=== PATIENT | male | born 1960 | race Caucasian/White ===

== ENCOUNTER 2019-10-28 13:53 | Outpatient (CLI) | payer OTHER, SELFPAY ==
[2019-10-28 14:06] LABS: Hematocrit 59.4 % (40.0-54.0); Mean Corpuscular Hemoglobin 29.8 pg (27.0-31.0); Mean Corpuscular Volume 93.1 fL (78.0-102.0); Mean Platelet Volume 9.3 fl (8.7-11.0); Platelet Count Result 207 K/mm3 (150-420); Red Blood Count 6.38 M/mm3 (4.70-6.10); Red Cell Distribution Width 12.7 % (11.6-14.4); White Blood Count 8.6 K/mm3 (4.8-10.8)
[2019-10-28 14:55] LABS: Alanine Aminotransferase 41 U/L (16-63); Albumin Level 3.8 g/dL (3.4-5.0); Alkaline Phosphatase 102 U/L (46-116); Anion Gap 4 mmol/L (8-16); Aspartate Amino Transferase 24 U/L (15-37); Bilirubin,Total 1.1 mg/dL (0.00-1.00); Blood Urea Nitrogen 9 mg/dL (7-18); Calcium 8.9 mg/dL (8.5-10.1); Carbon Dioxide 34 mmol/L (21-32); Chloride 102 mmol/L (98-108); Cholesterol 202 mg/dL (0-200); Estimated Glomerular Filt Rate > 60; Glucose 101 mg/dL (70-99); HDL Direct 39 mg/dL (40-60); LDL Cholesterol Calculated 137 mg/dL (<130); Osmolality Calculated 288 mOsm/kg (285-295); Prostate Specific Antigen 1.5 ng/mL (< OR = 4.0); Sodium 140 mmol/L (136-145); Total Protein 6.9 g/dL (6.4-8.2); Triglycerides 130 mg/dL (0-150)
== END 2019-10-28 13:54 | disposition home or self-care (01) ==
LOC: CHSLAB 13:58
PROVIDERS: PCP Family Medicine; Visit Provider Nurse Practitioner Family
DX: E78.5 Hyperlipidemia, unspecified (principal); I10 Essential (primary) hypertension; N40.1 Benign prostatic hyperplasia with lower urinary tract symptoms; R39.15 Urgency of urination
CPT/HCPCS: 36415; 80053; 80061; 84153; 85027

== ENCOUNTER 2020-10-09 09:05 | Outpatient (CLI) | payer OTHER, SELFPAY ==
--- NOTE | ~2020-10-09 | US_ITS ---
EXAMINATION: US abdomen limited DATE: 10/09/2020 09:51 INDICATION: Unspecified abdominal pain TECHNIQUE: Multiple grayscale and Doppler ultrasound images of the abdomen were obtained. COMPARISON: None available FINDINGS: Bowel gas obscures visualization of the pancreas. The visualized portions of the pancreas a re unremarkable. There are questionable small echogenic, nonshadowing foci of the liver. There is nod ularity of the liver surface. Normal hepatopetal flow in the main portal vein. Stones are present in the nondistended gallbladder. There is no gallbladder wall thickening or pericholecystic fluid The no rmal common bile duct measures 3 mm. There was no sonographic Branham sign. IMPRESSION: 1. Liver surface nodularity suggestive of cirrhosis. 2. Possible small liver masses. Further evaluation by CT or MRI is recommended. Reviewed, dictated and finalized at location A.
== END 2020-10-09 09:06 | disposition home or self-care (01) ==
LOC: CHSIMG 09:06
PROVIDERS: PCP Family Medicine; Visit Provider Family Medicine
DX: R10.9 Unspecified abdominal pain (principal)
CPT/HCPCS: 76705

== ENCOUNTER 2020-11-21 07:22 | Outpatient (CLI) | payer OTHER, SELFPAY ==
--- NOTE | ~2020-11-21 | MR_ITS ---
EXAMINATION: MR abdomen wo/w con INDICATION: Hepatomegaly and possible liver masses on ultrasound TECHNIQUE: Multisequence, multiplanar MRI of the abdomen is performed COMPARISON: Ultrasound, 10/09/2020 CONTRAST: Multihance, 14 cc FINDINGS: No MRI correlate is identified for the liver lesions question on the comparison ultrasound. The spleen, pancreas, and adrenal glands are normal. Stones are present in the nondistended gallblad tracie. The kidneys are unremarkable. There are no dilated loops of bowel. No pathologically enlarged ab dominal lymph nodes are identified. IMPRESSION: 1. No suspicious correlate identified for the small liver masses questioned on the comparison ultraso und. Reviewed, dictated and finalized at location A. IMPRESSION: 1. No suspicious correlate identified for the small liver masses questioned on the comparison ultrasound.
== END 2020-11-21 07:23 | disposition home or self-care (01) ==
LOC: CHSIMG 07:25
PROVIDERS: PCP Family Medicine; Visit Provider Family Medicine
DX: R16.0 Hepatomegaly, not elsewhere classified (principal)
CPT/HCPCS: 74183

== ENCOUNTER 2020-12-06 11:26 | Outpatient (CLI) | payer OTHER, SELFPAY ==
[2020-12-06 12:11] LABS: Hematocrit 56.4 % (40.0-54.0); Hemoglobin 18.3 g/dL (14.0-18.0); Mean Corpuscular HGB Conc 32.4 g/dL (32.0-36.0); Mean Corpuscular Hemoglobin 29.2 pg (27.0-31.0); Mean Platelet Volume 9.7 fl (8.7-11.0); Platelet Count Result 176 K/mm3 (150-420); Red Blood Count 6.27 M/mm3 (4.70-6.10); Red Cell Distribution Width 12.6 % (11.6-14.4)
[2020-12-06 12:26] LABS: Partial Thromboplastin Time 27.3 SEC (23.90-30.70)
[2020-12-06 12:39] LABS: Prothrombin Time 10.9 Seconds (9.64-11.0)
[2020-12-06 13:11] LABS: Alanine Aminotransferase 30 U/L (16-63); Albumin Level 3.8 g/dL (3.4-5.0); Alkaline Phosphatase 101 U/L (46-116); Anion Gap 5 mmol/L (8-16); Aspartate Amino Transferase 19 U/L (15-37); Bilirubin,Total 0.5 mg/dL (0.00-1.00); Blood Urea Nitrogen 6 mg/dL (7-18); Calcium 8.5 mg/dL (8.5-10.1); Carbon Dioxide 35 mmol/L (21-32); Chloride 98 mmol/L (98-108); Cholesterol 112 mg/dL (0-200); Estimated Glomerular Filt Rate > 60; Ferritin 90 ng/mL (26-388); Glucose 111 mg/dL (70-99); HDL Direct 35 mg/dL (40-60); Iron 65 ug/dL (65-175); LDL Cholesterol Calculated 51 mg/dL (<130); Osmolality Calculated 284 mOsm/kg (285-295); Percent Iron Saturation 20 % (12-57); Potassium 4.3 mmol/L (3.5-5.1); Prostate Specific Antigen 1.2 ng/mL (< OR = 4.0); Sodium 138 mmol/L (136-145); Total Protein 6.5 g/dL (6.4-8.2); Triglycerides 128 mg/dL (0-150)
[2020-12-09 07:00] LABS: SARS-CoV-2 IgG <1.00 Index (<1.00)
[2020-12-09 11:34] LABS: Mitochondrial (M2) Ab (IgG) <=20.0 U (<=20.0)
[2020-12-10 14:21] LABS: Alpha-1-Antitrypsin, QN 182 mg/dL (83-199); Ceruloplasmin 30 mg/dL (18-36)
[2020-12-10 20:18] LABS: Actin Antibody (IgG) <20 U (<20)
[2020-12-11 03:49] LABS: Hepatitis A Antibody IgM Nonreactive; Hepatitis B Core Antibody Nonreactive (Nonreactive); Hepatitis B Surface Antigen Nonreactive (Nonreactive); Hepatitis C Signal to Cutoff 0.02 ratio (<1.00); Hepatitis C Virus Antibody Nonreactive (Nonreactive)
[2020-12-13 13:28] LABS: ANA Cascade Screen Negative (Negative)
== END 2020-12-06 11:27 | disposition home or self-care (01) ==
LOC: CHSLAB 11:34
PROVIDERS: PCP Family Medicine; Visit Provider Surgery
DX: K74.60 Unspecified cirrhosis of liver (principal); R35.1 Nocturia; Z20.822 Contact with and (suspected) exposure to COVID-19
CPT/HCPCS: 36415; 80053; 80061; 80074; 82103; 82390; 82728; 83516; 83520; 83540; 83550; 84153; 85027; 85610; 85730; 86038; 86769; G0103

== ENCOUNTER 2022-12-17 14:34 | Emergency (ER) | payer OTHER, SELFPAY ==
[2022-12-17] VITALS (39 sets, daily range): BP systolic 102–144; BP diastolic 61–97; PULSE 91–114; RESP 15–28; TEMP 36.4–37.1; O2SAT 82–97
--- NOTE | ~2022-12-17 | XR_ITS ---
EXAMINATION: XR chest 1V portable INDICATION: Shortness of breath TECHNIQUE: Portable AP chest at 1501 hours COMPARISON: None available FINDINGS: There is mild atelectasis of the left midlung zone and lung bases. No pleural effusion or p neumothorax. The lungs are free of acute opacities. The cardiomediastinal silhouette is normal. IMPRESSION: 1. No acute cardiopulmonary abnormality. Reviewed, dictated and finalized at location F.
--- NOTE | 2022-12-17 14:43 | ED.SOB ---
HPI - SOB/Dyspnea General Chief Complaint: Shortness of Breath/Dyspnea Stated Complaint: short of breath; sore throat; leg swelling Time Seen by Provider: 12/17/22 14:42 Source: patient Mode of arrival: ambulatory Limitations: no limitations History of Present Illness HPI Narrative: 62-year-old male, smoker with a history of headaches, chronic low back pain, dyslipidemia, cirrhosis of liver, gallstones, CAD,COPD presents to the ER with a 4 day history of -- sore throat -- chills -- worsening shortness of breath for the past 1 month. On presentation to the ER the patient was noted to have an oxygen saturation of 85% on room air. Subsequently he was placed on 1 L FiO2 on transfer to the ER. -- Increasing leg swelling MD elicited complaint: shortness of breath and cough Pertinent past history: COPD Onset (ago): day(s) ( symptoms started 4 days ago.) Context: recent illness Timing: constant Severity: moderate Exacerbating factors: exertion Relieving factors: rest Known history of: COPD Associated symptoms: cough and chest congestion Treatment prior to arrival: none Related Data Home oxygen amount: none Allergies Allergy/AdvReac Type Severity Reaction Status Date / Time No Known Allergies Allergy Verified 12/17/22 14:54 Review of Systems Review of Systems: All systems reviewed & are unremarkable except as noted in HPI and below Constitutional: Constitutional: Reports as per HPI and Reports no additional constitutional complaints Eyes: Eyes: Reports as per HPI and Reports no additional eye complaints ENT: Reports system reviewed and no additional complaints, except as documented and Reports as per HPI Cardiovascular: Cardiovascular: Reports as per HPI and Reports no additional cardiovascular complaints Respiratory: Respiratory: Reports as per HPI, Reports no additional respiratory complaints, Reports chest congestion, Reports cough and Reports dyspnea Gastrointestinal: Gastrointestinal: Reports as per HPI and Reports no additional gastrointestinal complaints Genitourinary: Genitourinary: Reports no additional male genitourinary complaints and Reports as per HPI Musculoskeletal: Musculoskeletal: Reports no additional musculoskeletal complaints, Reports as per HPI and Reports back pain Integumentary/Breasts: Skin/Breast: Reports system reviewed and no additional complaints, except as docu and Reports as per HPI Neurologic: Reports system reviewed and no additional complaints, except as documented and Reports as per HPI Psychiatric: Psychiatric: Reports no additional psychiatric complaints and Reports as per HPI Endocrine: Endocrine: Reports no additional endocrine complaints and Reports as per HPI Hematologic/Lymphatic: Hematologic/Lymphatic: Reports no additional hematologic/lymphatic complaints and Reports as per HPI Allergic/Immunologic: Allergic/Immunologic: Reports no additional allergic/immunologic complaints and Reports as per HPI PMFSH Past Medical History Medical History CAD (coronary artery disease) Chronic back pain Cluster headache COPD (chronic obstructive pulmonary disease) Hyperlipidemia Nicotine dependence Surgical History Surgical History No history of previous surgery Family History Family History Other Depression Family history of coronary artery disease Family history of migraine headaches Family history of osteoporosis Hypertension Social History Social History Smoking packs per day: 1 Smoking cigarettes per day: 20.0 Years smoked: 30 Smoking pack-years: 30.00 Smoking status: Current every day smoker Tobacco type: cigarettes Alcohol intake: former Alcohol use details: QUIT ABOUT 2014 Substance use: never Substance use type: does not use L
--- NOTE | 2022-12-17 14:47 | ECG_ITS ---
Measurements Intervals [place] Rate: 111 P: 83 AL: 151 QRS: 114 QRSD: 83 T: 65 QT: 326 QTc: 444 Interpretive Statements SINUS TACHYCARDIA RIGHT ATRIAL ENLARGEMENT [0.3mV P-WAVE] LEFT ATRIAL ENLARGEMENT [-0.15mV P-WAVE IN V1/V2] INDETERMINATE AXIS POSSIBLE RIGHT VENTRICULAR CONDUCTION DELAY [RSR (QR) IN V1/V2] ABNORMAL ECG NO PREVIOUS ECG AVAILABLE FOR COMPARISON Electronically Signed On 12-17-2022 15:49:42 CDT by [place] Feng M.D.
[2022-12-17 15:09] LABS: Base Excess ABG 1.9 mmol/L (0-2); HCO3 ABG 27.1 mmol/L (23-29); Oxygen Content ABG 20.8 %vol (16.0-22.0); Oxygen Saturation ABG 89.2 % (95-97); Oxyhemoglobin 83.4 % (94-100); PCO2 ABG 44.1 mmHg (35-45); Total Hemoglobin 17.8 g/dL (12.0-18.0); pH ABG 7.41 (7.35-7.45)
[2022-12-17 15:11] LABS: Device ROOM AIR; Modified Allen's Test Pass; Site Drawn RIGHT RADIAL
[2022-12-17 15:13] LABS: Hemoglobin 16.7 g/dL (14.0-18.0); Mean Corpuscular HGB Conc 32.7 g/dL (32.0-36.0); Mean Corpuscular Hemoglobin 29.9 pg (27.0-31.0); Mean Corpuscular Volume 91.4 fL (78.0-102.0); Mean Platelet Volume 10.1 fl (8.7-11.0); Platelet Count Result 184 K/mm3 (150-420); Red Blood Count 5.58 M/mm3 (4.70-6.10); Red Cell Distribution Width 13.3 % (11.6-14.4); White Blood Count 7.3 K/mm3 (4.8-10.8)
[2022-12-17 15:25] LABS: Lipase 29 U/L (16-77)
[2022-12-17 15:33] LABS: INR 1.1; Partial Thromboplastin Time 27.3 SEC (23.90-30.70); Prothrombin Time 11.8 Seconds (9.50-12.10)
[2022-12-17 15:35] LABS: Alanine Aminotransferase 24 U/L (16-63); Alkaline Phosphatase 230 U/L (46-116); Anion Gap 4 mmol/L (8-16); Aspartate Amino Transferase 24 U/L (15-37); Bilirubin,Total 0.7 mg/dL (0.00-1.00); Blood Urea Nitrogen 13 mg/dL (7-18); Calcium 8.8 mg/dL (8.5-10.1); Carbon Dioxide 30 mmol/L (21-32); Chloride 94 mmol/L (98-108); Creatine Kinase 69 U/L (39-308); Estimated CRCL calculation 55 ml/min; Estimated Glomerular Filt Rate > 60; Glucose 154 mg/dL (70-99); NT Pro B Type Natriuretic Pept 2842 pg/mL (0-125); Osmolality Calculated 269 mOsm/kg (285-295); Potassium 4.9 mmol/L (3.5-5.1); Sodium 128 mmol/L (136-145)
[2022-12-17 15:39] LABS: Lactic Acid Reflex 0.9 mmol/L (0.4-2.0); Thyroid Stimulating Hormone 0.95 uIU/mL (0.36-3.74); Troponin I 27.3 ng/L (0.00-60.4)
[2022-12-17 15:40] LABS: Band Neutrophils Percent 0 % (0-6); Basophils Percent Manual 0 % (0-1); Eosinophils Percent Manual 0 % (1-6); Lymphocytes Absolute Manual 1.09 K/mm3 (1.1-4.5); Lymphocytes Percent Manual 15 % (18-44); Metamyelocytes Percent 0 %; Monocytes Absolute Manual 0.36 K/mm3 (0.1-0.90); Monocytes Percent Manual 5 % (3-9); Myelocytes Percent 2 %; Neutrophils Absolute Manual 5.69 K/mm3 (1.3-6.7); Neutrophils Percent Manual 78 % (46-73); Total Cells Counted 100
[2022-12-17 15:49] LABS: Influenza A QL RT-PCR Negative (Negative); Influenza B QL RT-PCR Negative (Negative); SARS-CoV-2 RNA PCR Negative (Negative)
[2022-12-17 15:50] LABS: RSV RNA, RT-PCR Negative (Negative)
[2022-12-17 15:51] LABS: Platelet Estimate Adequate (Adequate)
[2022-12-17] MEDS: FUROSEMIDE INJ 40 MG/4 ML VIAL IV PUSH (16:50)
[2022-12-17] MEDS: methylPREDNISolone SOD SUCC 125 MG VIAL IV PUSH (21:00)
[2022-12-17] MEDS: NICOTINE (*PBKC) 21 MG PATCH 1 PATCH TRANSDERM (21:00)
[2022-12-17] MEDS: ACETAMINOPHEN 325 MG TABLET 650 MG PO (23:28)
== END 2022-12-17 23:31 | disposition short-term general hospital (02) ==
PROVIDERS: Emergency Provider Internal Medicine Critical Care Medicine; PCP Family Medicine
DX: J44.9 Chronic obstructive pulmonary disease, unspecified (principal); J96.91 Respiratory failure, unspecified with hypoxia; I50.9 Heart failure, unspecified; E87.1 Hypo-osmolality and hyponatremia; I25.10 Atherosclerotic heart disease of native coronary artery without angina pectoris; E78.5 Hyperlipidemia, unspecified; F17.210 Nicotine dependence, cigarettes, uncomplicated; Z20.822 Contact with and (suspected) exposure to COVID-19
CPT/HCPCS: 36415; 36600; 71045; 80053; 82550; 82805; 83605; 83690; 83880; 84443; 84484; 85025; 85610; 85730; 87637; 93005; 96374; 96375; 99285; A9270; J1940; J2930

== ENCOUNTER 2022-12-30 15:32 | Outpatient (CLI) | payer OTHER, SELFPAY ==
[2022-12-30 15:55] LABS: Hemoglobin A1C 5.8 % (<5.7)
[2022-12-30 16:03] LABS: Anion Gap 5 mmol/L (8-16); Blood Urea Nitrogen 13 mg/dL (7-18); Calcium 8.4 mg/dL (8.5-10.1); Carbon Dioxide 37 mmol/L (21-32); Chloride 98 mmol/L (98-108); Estimated Glomerular Filt Rate > 60; Glucose 105 mg/dL (70-99); Osmolality Calculated 290 mOsm/kg (285-295); Potassium 4.6 mmol/L (3.5-5.1); Sodium 140 mmol/L (136-145)
== END 2022-12-30 15:33 | disposition home or self-care (01) ==
LOC: CHSLAB 15:33
PROVIDERS: PCP Family Medicine; Visit Provider Family Medicine
DX: E11.9 Type 2 diabetes mellitus without complications (principal); I50.21 Acute systolic (congestive) heart failure
CPT/HCPCS: 36415; 80048; 83036

== ENCOUNTER 2023-01-27 12:55 | Outpatient (CLI) | payer OTHER, SELFPAY | END 2023-01-27 12:56 | disposition home or self-care (01) | LOC: ANHAUDIO 12:57 | PROVIDERS: PCP Family Medicine; Visit Provider Family Medicine | DX: H90.3 Sensorineural hearing loss, bilateral (principal) | CPT/HCPCS: 92557; 92567 ==

== ENCOUNTER 2023-07-08 15:41 | Outpatient (CLI) | payer OTHER, SELFPAY ==
[2023-07-08 15:56] LABS: Hematocrit 44.7 % (40.0-54.0); Hemoglobin 13.9 g/dL (14.0-18.0); Mean Corpuscular HGB Conc 31.1 g/dL (32-36); Mean Corpuscular Volume 93.3 fL (78.0-102.0); Mean Platelet Volume 8.5 fl (8.7-11.0); Platelet Count Result 242 K/mm3 (150-420); Red Blood Count 4.79 M/mm3 (4.70-6.10); Red Cell Distribution Width 12.4 % (11.6-14.4); White Blood Count 10.7 K/mm3 (4.8-10.8)
[2023-07-08 16:42] LABS: Alanine Aminotransferase 29 U/L (16-63); Albumin Level 3.1 g/dL (3.4-5.0); Alkaline Phosphatase 114 U/L (46-116); Anion Gap 4 mmol/L (4-12); Aspartate Amino Transferase 19 U/L (15-37); Bilirubin,Total 0.3 mg/dL (0.00-1.00); Blood Urea Nitrogen 17 mg/dL (7-18); Calcium 8.6 mg/dL (8.5-10.1); Carbon Dioxide 37 mmol/L (21-32); Chloride 102 mmol/L (98-108); Cholesterol 108 mg/dL (0-200); Estimated Glomerular Filt Rate > 60; Glucose 93 mg/dL (70-99); HDL Direct 48 mg/dL (40-60); LDL Cholesterol Calculated 42 mg/dL (<130); Osmolality Calculated 297 mOsm/kg (285-295); Prostate Specific Antigen 1.9 ng/mL (< OR = 4.0); Sodium 143 mmol/L (136-145); Total Protein 6.1 g/dL (6.4-8.2); Triglycerides 89 mg/dL (0-150)
[2023-07-08 16:52] LABS: Band Neutrophils Percent 0 % (0-6); Basophils Percent Manual 0 % (0-1); Eosinophils Absolute Manual 0.32 K/mm3 (0.02-0.50); Eosinophils Percent Manual 3 % (1-6); Lymphocytes Absolute Manual 1.81 K/mm3 (1.1-4.5); Lymphocytes Percent Manual 17 % (18-44); Monocytes Absolute Manual 0.96 K/mm3 (0.1-0.90); Monocytes Percent Manual 9 % (3-9); Neutrophils Absolute Manual 7.59 K/mm3 (1.3-6.7); Neutrophils Percent Manual 71 % (46-73); Platelet Estimate Adequate (Adequate); Total Cells Counted 100
== END 2023-07-08 15:42 | disposition home or self-care (01) ==
LOC: CHSLAB 15:43
PROVIDERS: PCP Family Medicine; Visit Provider Family Medicine
DX: Z12.5 Encounter for screening for malignant neoplasm of prostate (principal); I50.20 Unspecified systolic (congestive) heart failure; R35.1 Nocturia
CPT/HCPCS: 36415; 80053; 80061; 84153; 85025; G0103

== ENCOUNTER 2023-07-23 15:40 | Outpatient (CLI) | payer OTHER, SELFPAY ==
--- NOTE | 2023-07-23 15:45 | ECHO_ITS ---
Patient Info Name: Gabriel Fernandez Age: 63 years : 1960 Gender: Male Ht: 60 in Wt: 144 lbs BSA: 1.68 m2 HR: 87 bpm BP: 127 / 102 mmHg Heart Rhythm: Sinus Rhythm Technical Quality: Fair Exam Date: 07/23/2023 3:36 PM Exam Location: Echo Lab Patient Status: Outpatient Admit Date: 07/23/2023 Staff Ordering Physician: Michael Schroeder DO Computed Tomography Technologist: Elizabeth De Los Santos RDCS Attending Provider: Michael Schroeder DO Referring Physician: Elda CAMACHO; Exam Type: CA echo doppler color flow Study Info Indications I50.20 - Unspecified systolic (congestive) heart failure Complete two-dimensional, color flow and Doppler transthoracic echocardiogram is performed. Summary 1. Complete two-dimensional, color flow and Doppler transthoracic echocardiogram is performed. 2. Left ventricular systolic function is preserved, estimated at 50-55%. 3. Left ventricular chamber dimension is normal. 4. The left ventricular diastolic function is grade I diastolic dysfunction. 5. E/e' 11 is mildly elevated. 6. There is trace tricuspid valve regurgitation. 7. RVSP is 16 mmHg which is normal pulmonary pressure. Left Ventricle E/e' 11 is mildly elevated. Left ventricular systolic function is preserved, estimated at 50-55%. Left ventricular chamber dimension is normal. The left ventricular diastolic function is grade I diastolic dysfunction. Right Ventricle Right ventricular systolic function is normal and with normal TAPSE 2.0 cm. Right ventricular chamber dimension is normal. Left Atria Left atrial chamber dimension is normal. Right Atria Right atrial chamber dimension is normal. Aortic Valve The aortic valve is trileaflet. There is no aortic valve stenosis. There is no aortic valve regurgitation. Pulmonic Valve There is no pulmonic regurgitation. Mitral Valve There is no mitral valve stenosis. There is no mitral valve regurgitation. Tricuspid Valve There is trace tricuspid valve regurgitation. RVSP is 16 mmHg which is normal pulmonary pressure. Pericardium/Pleural There is no pericardial effusion. Inferior Vena Cava Normal inferior vena cava with >50% collapse upon inspiration consistent with normal right atrial pressure, 5 mmHg. Aorta The aortic root size at the sinus of Valsalva is normal. Tricuspid Valve Name Value Normal Estimated PAP/RSVP RA Pressure 5 mmHg <=5 Report Signatures
== END 2023-07-23 15:41 | disposition home or self-care (01) ==
LOC: CHSIMG 15:41
PROVIDERS: PCP Family Medicine; Visit Provider Family Medicine
DX: I51.89 Other ill-defined heart diseases (principal)
CPT/HCPCS: 93306

== ENCOUNTER 2023-08-13 13:07 | Outpatient (CLI) | payer OTHER, SELFPAY | END 2023-08-13 13:08 | disposition home or self-care (01) | LOC: CHSCARD 13:08 | PROVIDERS: PCP Family Medicine; Visit Provider Family Medicine | DX: J44.9 Chronic obstructive pulmonary disease, unspecified (principal); R94.2 Abnormal results of pulmonary function studies | CPT/HCPCS: 94060; 94726; 94729 ==

== ENCOUNTER 2023-08-26 13:34 | Outpatient (CLI) | payer OTHER, SELFPAY ==
--- NOTE | ~2023-08-26 | CT_ITS ---
EXAMINATION: CT lung screening DATE: 08/26/2023 13:54 INDICATION: Z87.891 - Personal history of nicotine dependence TECHNIQUE: Computed tomography (CT) of the chest was performed without intravenous contrast. Addition al 3D reconstructions utilizing coronal maximum intensity projection (MIP) were performed. Automated exposure control and iterative reconstruction technique were employed. The dose-length product was 77 .48 mGy-cm. COMPARISON: None FINDINGS: Mild discoid atelectasis extending from the left upper lobe and the lingula. Additional peripheral at electasis at the anterior left lower lobe and medial right middle lobe. 2 mm para fissural nodule gabe ng the right upper lobar side of the right major fissure. Additional 1-2 mm nodules at the anterior b asilar segment of the left lower lobe. No pneumonia, pulmonary edema or pleural effusion. Heart size is normal. No pericardial effusion. Thoracic aorta is normal in caliber. No pathologically enlarged t horacic lymphadenopathy. Mild thoracic spondylosis. IMPRESSION: 1. Lung-RADS category 2: Benign appearance or behavior. Continue annual screening with noncontrast lo w-dose chest CT in 12 months. Reviewed, dictated and finalized at location A. IMPRESSION: 1. Lung-RADS category 2: Benign appearance or behavior. Continue annual screeni ng with noncontrast low-dose chest CT in 12 months.
--- NOTE | 2023-09-03 22:13 | P.PCNPFT_ITS ---
PFT Procedure Performed PFT Procedure Performed Spirometry with Pre/Post Bronchodilator Plethysmography (Lung Vol) Diffusing Cap (DLCO) Flow Vol Loop PFT Interpretation DOS: 08/13/2023 REQUESTING: Michael Schroeder DO REASON FOR TESTING: Bronchitis PULMONARY FUNCTION TESTS Results are reliable and reproducible. The patient had a difficult time fully exhaling. He gave maximal effort. Spirometry: The pre-bronchodilator FEV1 is 0.47 L, 23% extremely low. The pre- bronchodilator FVC is 1.68 L, 64%, mildly reduced.. The FEV1/FVC ratio is 28%. After bronchodilator, the FEV1 is 0.51 L, 25%, +8%. The FVC is 1.81 L, 68%, +7%. The FEV1/FVC ratio is 28%. Lung volumes: The total lung capacity is 5.37 L, 127%. The residual volume is 3.68 L, 214%, extremely elevated consistent with air trapping. The RV/TLC is 69% consistent with air trapping. Significantly increased airway resistance. Diffusion: DLCO is 6.6, 39%. The DLCO/VA is 2.81, 75%. Flow volume loop: The flow volume loop shows extremely severe coving of the expiratory limb. IMPRESSION: This study shows extremely severe obstructive ventilatory impairment without significant change after bronchodilator administration, severe air trapping, severe diffusion impairment which corrects for alveolar volume. Lack of response to bronchodilator should not preclude use if clinically indicated. No prior studies to compare. Kamryn Bunch MD
== END 2023-08-26 13:35 | disposition home or self-care (01) ==
LOC: CHSIMG 13:35
PROVIDERS: PCP Family Medicine; Visit Provider Family Medicine
DX: Z12.2 Encounter for screening for malignant neoplasm of respiratory organs (principal); Z87.891 Personal history of nicotine dependence
CPT/HCPCS: 71271

== ENCOUNTER 2023-08-29 20:13 | Outpatient (CLI) | payer OTHER, SELFPAY ==
--- NOTE | 2023-09-04 20:57 | WPDSLEEPSTUD ---
Sleep Study Date of Study: 08/29/23 Ordering Provider: Ziggy Moncada DO Interpreting Physician: Kamryn Bunch MD Sleep Study Type: Polysomnogram Height: 1.52 m Weight: 63.503 kg Body Mass Index: 27.3 Neck Circumference (inches): 14.5 [place]: 14 Reason for Sleep Study Hypersomnolence Sleep History Gabriel Fernandez is a 63-year-old man with excessive daytime sleepiness. His medical co-morbidities include CHF, anxiety and depression, nasal allergies, bronchitis, COPD, heartburn and enlarged prostate. He frequently awakens from sleep feeling short of breath. He occasionally wakes at night with heartburn, belching or coughing.??He frequently snores loudly enough that others complain. He frequently has trouble sleeping when he has a cold. He occasionally wakes up gasping for breath during the night. He frequently has breathing problems at night. He occasionally sweats excessively at night. He rarely notices his heart pounding or beating irregularly during the night. He frequently falls asleep during the day. He frequently falls asleep involuntarily, however never falls asleep while driving. He never experiences loss of muscle tone with strong emotion. He never has daytime difficulty at work due to excessive sleepiness. He never feels paralyzed on waking or falling asleep. He occasionally experiences vivid dreams upon waking or falling asleep. He constantly feels afraid of going to sleep. He occasionally has nightmares. He frequently recalls his dreams. He frequently has thoughts racing through his mind. He frequently feels sad, depressed or anxious. He occasionally notices parts of his body jerk. He frequently kicks during the night. He occasionally feels crawling or aching feelings in his legs. He frequently feels leg pain at night. He never has morning jaw pain, never grinds his teeth at night. He frequently feels bothered by pain during the day, frequently awakened by pain during the night. He frequently wakes up feeling stiff in the morning, and he occasionally wakes feeling sore or achy. He occasionally awakens with pain in his neck, spine, or joints. He has fatigue, memory problems, concentration difficulties, and takes antacids regularly. Normal bedtime is 12:00 midnight, falling asleep within 30 minutes, waking 2-3 times at night. When waking at night, he goes to the bathroom then to the living room to watch TV. Wake time is 9:00 a.m.. He typically gets 4-6 hours of sleep per night. He takes naps in the day, however a short nap lasting 10-15 minutes is not refreshing. He is drowsy for 3 hours after waking. He feels better in the evening compared to other times of day. Habits:??Tobacco: former smoker Caffeine:2 cups of coffee a day. Alcohol: none Recreational substances: none [facility] Past Medical History Medical History CAD (coronary artery disease) Chronic back pain Cluster headache COPD (chronic obstructive pulmonary disease) Hyperlipidemia Nicotine dependence Surgical History Surgical History No history of previous surgery Family History Family History Other Depression Family history of coronary artery disease Family history of migraine headaches Family history of osteoporosis Hypertension Social History Social History Smoking packs per day: 1 Smoking cigarettes per day: 20.0 Years smoked: 30 Smoking pack-years: 30.00 Smoking status: Former smoker Tobacco type: cigarettes Alcohol intake: former Alcohol use details: QUIT ABOUT 2014 Substance use: never Substance use type: does not use Living arrangements: with family Additional living arrangements comments: . 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
[2023-09-06 12:51] VITALS: BMI 27.3
== END 2023-08-30 06:20 | disposition home or self-care (01) ==
PROVIDERS: PCP Family Medicine; Visit Provider Internal Medicine Cardiovascular Disease
DX: G47.33 Obstructive sleep apnea (adult) (pediatric) (principal); G47.10 Hypersomnia, unspecified
CPT/HCPCS: 95810

== ENCOUNTER 2025-02-16 14:26 | Outpatient (CLI) | payer OTHER, SELFPAY | END 2025-02-16 14:27 | disposition home or self-care (01) | PROVIDERS: PCP Family Medicine; Visit Provider Nurse Practitioner Family | DX: Z77.010 Contact with and (suspected) exposure to arsenic (principal) | CPT/HCPCS: 36415 ==